=== PATIENT | female | born 1950 | race Caucasian/White ===

== ENCOUNTER → 2016-11-04 | Outpatient (CLI) | payer OTHER, MEDICARE ==
[~2016-11-04] MED LIST: ABAT250I IV; CETI10TA10 PO; DIPH1TAB PO; FOLI1TAB7 PO; METH2.5T PO; NYSS5 PO; OPTIRAY 320 IV PRN; OXYC5TAB PO; PRED-301 PO; TRAM-10 PO; ZNTT/150 PO
--- NOTE | 2016-11-04 11:04 | DIAGNOSTIC IMAGING REPORT ---
CT ANGIO ABD/PELVIS COMBO CT DOSE: 4009.56 mGy.cm CLINICAL HISTORY: Follow-up abdominal aortic aneurysm repair. TECHNIQUE: Unenhanced images were obtained through the abdomen and pelvis. The patient was then scanned in a dynamic helical fashion during intravenous administration of 1 19 cc Optiray 320. 2 minute delayed images were also acquired. COMPARISON STUDY: 08/16/2016 FINDINGS: Visualized portions lung bases reveal pulmonary emphysema. There is bilateral subpleural reticulation with mild honeycombing. There is lower lobe bronchial wall thickening. There are areas of mucous plugging within the right lower lobe. There is a posterior gastric diverticulum. No space-occupying hepatic masses are visualized. There is cholelithiasis. No splenic masses are visualized.. No pancreatic masses are visualized. There is a 17 mm left adrenal adenoma. 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 No solid renal masses are visualized. There is a fat-containing ventral hernia. There are no transition zones indicate bowel obstruction. By history the appendix is surgically absent. There is no evidence of acute diverticulitis. There is a suspected nabothian gland cyst. There is no evidence of pathologic adenopathy. The patient is status post endovascular repair of an abdominal aortic aneurysm with aortobiiliac stents. There are no findings to indicate an endoleak. There are postsurgical changes within the right groin. There is early venous filling of the right common femoral and iliac vein. The findings are suggestive of an AV fistula. IMPRESSION: 1. Interval endovascular repair of an abdominal aortic aneurysm with aortobiiliac stents. There are no findings to indicate an endoleak. 2. 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 Posterior gastric diverticulum 4. 17 mm left adrenal adenoma 5. Bilateral lower lobe pulmonary reticulation, honeycombing, and right lower lobe mucus plugging 6. Cholelithiasis 7. AV fistula involving the right groin with early venous filling of the right common femoral and iliac vein. This report will be called secondary to this unexpected finding. Electronically signed by: Zen Infante M.D. 11/04/2016 11:02 AM Dictated Date/Time: 11/04/2016 10:47 AM
== END | disposition home or self-care (01) ==
LOC: C.CTS 10:13
PROVIDERS: ATTEND Specialist
DX: Z95.828 Presence of other vascular implants and grafts (principal); I71.4 Abdominal aortic aneurysm, without rupture